=== PATIENT | female | born 1985 | race Caucasian/White ===

== ENCOUNTER 2016-10-25 10:03 | Inpatient (IN) | payer OTHER ==
[2016-10-25 11:11] LABS: Hematocrit 34 % (35-47); Hemoglobin 11.5 g/dl (12.0-16.0); Mean Corpuscular HGB Conc 33 g/dl (31-36); Mean Corpuscular Hemoglobin 32 pg (27-31); Mean Corpuscular Volume 95 fL (80-97); Mean Platelet Volume 11 um3 (7.4-10.4); Red Cell Distribution Width 13 % (10.5-15); White Blood Count 19.1 10^3/ul (3.5-10.8)
[2016-10-25 11:15] LABS: Add Diff/Slide Review? Slide Review Added; Comments Flag Yes
[2016-10-25] MEDS ORDERED: fentaNYL* 50 MCG/ML 2 ML VIAL (100 MCG VIAL) ONE (13:17)
[2016-10-25] MEDS ORDERED: OBEPIDURAL* 250 ML ONE (13:17)
[2016-10-25] MEDS ORDERED: Phenylephrine IV* 40 MCG/ML 10 ML SYRINGE IV PUSH PRN ×2 (14:11)
[2016-10-25] MEDS ORDERED: Sodium Citrate/Citric Acid* 15 ML UDC PO PRN (14:11)
[2016-10-25] MEDS ORDERED: Famotidine TAB* 20 MG PO PRN (14:11)
[2016-10-25] MEDS ORDERED: OBEPIDURAL* 250 ML EPIDURAL SCH (15:00)
[2016-10-25] MEDS ORDERED: Oxytocin in LR* 20 UNITS/1,000 ML BAG IVPB ONE (16:49)
[2016-10-25] MEDS ORDERED: Witch Hazel PAD* JAR TOPICAL PRN (17:10)
[2016-10-25] MEDS ORDERED: Dibucaine 1% 28.35 GM TUBE PR PRN (17:10)
[2016-10-25] MEDS ORDERED: Acetaminophen TAB* 325 MG PO PRN (17:10)
[2016-10-25] MEDS ORDERED: Oxytocin in LR* 20 UNITS/1,000 ML BAG IVPB SCH (18:00)
[2016-10-25] MEDS: Ibuprofen TAB* 600 MG PO PRN (19:52)
[2016-10-25] MEDS: Docusate CAP* 100 MG PO SCH (19:52)
[2016-10-26 07:53] LABS: Hematocrit 30 % (35-47); Hemoglobin 10.1 g/dl (12.0-16.0); Mean Corpuscular HGB Conc 34 g/dl (31-36); Mean Corpuscular Hemoglobin 32 pg (27-31); Mean Corpuscular Volume 96 fL (80-97); Mean Platelet Volume 11 um3 (7.4-10.4); Red Blood Count 3.15 10^6/ul (4.0-5.4); Red Cell Distribution Width 13 % (10.5-15)
[2016-10-26] MEDS: Docusate CAP* 100 MG PO SCH ×3 (08:59→21:32)
[2016-10-26] MEDS ORDERED: Ferrous Gluconate TAB* 324 MG TAB PO SCH (09:00)
[2016-10-26] MEDS: Ibuprofen TAB* 600 MG PO PRN ×2 (09:19→15:33)
[2016-10-27 08:06] VITALS: BP 104/67
[2016-10-27] MEDS: Docusate CAP* 100 MG PO SCH (08:18)
== END 2016-10-27 09:56 | disposition home or self-care (01) | DRG 560 ==
LOC: MCHOBOUT 10:03 → MCHOB 10:23
PROVIDERS: ADMIT Nurse Practitioner; ATTEND Nurse Practitioner
PROC: 0HQ9XZZ Repair Perineum Skin, External Approach (ICD-10-PCS; principal; 2016-10-25)
PROC: 10907ZC Drainage of Amniotic Fluid, Therapeutic from Products of Conception, Via Natural or Artificial Opening (ICD-10-PCS; 2016-10-25)
PROC: 10E0XZZ Delivery of Products of Conception, External Approach (ICD-10-PCS; 2016-10-25)
PROC: 4A1HXCZ Monitoring of Products of Conception, Cardiac Rate, External Approach (ICD-10-PCS; 2016-10-25)
DX: O48.0 Post-term pregnancy (principal); O77.0 Labor and delivery complicated by meconium in amniotic fluid; O70.0 First degree perineal laceration during delivery; Z37.0 Single live birth; Z3A.40 40 weeks gestation of pregnancy
CPT/HCPCS: 36415; 85025; 86850; 86900; 86901; A9270-GY; J3010

== ENCOUNTER 2018-07-15 13:59 | Emergency (ER) | payer OTHER ==
[2018-07-15 14:09] VITALS: BP 113/68
--- NOTE | 2018-07-15 14:33 | UC ---
Throat Pain/Nasal Aureliano HPI - HPI Summary HPI Summary: started [address], no fever or cough - History of Current Complaint Chief Complaint: UCRespiratory Stated Complaint: THROAT COMPLAINT Time Seen by Provider: 07/15/18 14:21 Hx Obtained From: Patient ?: No Onset/Duration: Gradual Onset Pain Intensity: 5 Associated Signs & Symptoms: Positive: Negative. Negative: Fever, Vomiting - Allergies/Home Medications Allergies/Adverse Reactions: Allergies Allergy/AdvReac Type Severity Reaction Status Date / Time No Known Allergies Allergy Verified 07/15/18 14:09 Home Medications: Home Medications Control Pill 07/15/18 [History] PMH/Surg Hx/FS Hx/Imm Hx Previously Healthy: Yes - Surgical History Surgical History: None - Family History Known Family History: Positive: None Negative: Hypertension, Diabetes - Social History Occupation: Employed Full-time Lives: With Family Alcohol Use: Occasionally Substance Use Type: None Smoking Status (MU): Never Smoked Tobacco Have You Smoked in the Last Year: No - Immunization History Most Recent Influenza Vaccination: 07/07/16 Most Recent Tetanus Shot: 07/28/16 Most Recent Pneumonia Vaccination: none Review of Systems All Other Systems Reviewed And Are Negative: Yes Constitutional: Positive: Negative. Negative: Fever, Chills ENT: Positive: Sore Throat Respiratory: Positive: Negative Cardiovascular: Positive: Negative Neurological: Positive: Negative Psychological: Positive: Negative Is Patient Immunocompromised?: No Physical Exam Triage Information Reviewed: Yes Appearance: Well-Appearing, No Pain Distress, Well-Nourished Vital Signs: Initial Vital Signs Temp 98.7 F 07/15/18 14:07 Pulse 88 07/15/18 14:07 Resp 18 07/15/18 14:07 BP 113/68 07/15/18 14:07 Pulse Ox 100 07/15/18 14:07 Vital Signs Reviewed: Yes ENT: Positive: Pharyngeal erythema, TMs normal Neck exam: Normal Neck: Positive: Supple, Nontender, No Lymphadenopathy Respiratory Exam: Normal Respiratory: Positive: Lungs clear Cardiovascular Exam: Normal Neurological Exam: Normal Psychological Exam: Normal Skin Exam: Normal Skin: Negative: Rashes Throat Pain/Nasal Course/Dx - Differential Dx/Diagnosis Differential Diagnosis/HQI/PQRI: Influenza, Mononucleosis, Pharyngitis, Tonsillitis Provider Diagnoses: sore throat Discharge - Sign-Out/Discharge Documenting (check all that apply): Patient Departure All imaging exams completed and their final reports reviewed: No Studies - Discharge Plan Condition: Good Disposition: HOME Patient Education Materials: Pharyngitis (ED) Forms: *Work Release Referrals: No Primary Care Phys,NOPCP [Primary Care Provider] - Additional Instructions: drink plenty of fluids use Tylenol or ibuprofen as directed for pain or fever return if no better 3 days - Billing Disposition and Condition Condition: GOOD Disposition: Home
== END 2018-07-15 14:48 | disposition home or self-care (01) ==
LOC: UCEAST 13:59
DX: J02.9 Acute pharyngitis, unspecified (principal)
CPT/HCPCS: 87651; 99211; G0463

== ENCOUNTER 2019-10-16 09:55 | Emergency (ER) | payer OTHER ==
--- OUTSIDE RECORDS SUMMARY | 2019-10-16 10:02 | XMS REPORT | Continuity of Care Document ---
:1985 External Reference #:[id number] Author Name Roslyn Scott CNM Address [address] [place] [address] Problems Active Problems Provider Date Oral contraception Jerome Luna CNM Onset: 04/24/2018 Social History Type Date Description Comments Sex Unknown Tobacco Use Start: Unknown Never Smoked Cigarettes Smoking Status Reviewed: 09/13/19 Never Smoked Cigarettes ETOH Use Alcohol Use Prior To rare Tobacco Use Start: Unknown Patient has never smoked Recreational Drug Use Does Not Use Drugs Exercise Type/Frequency Exercises regularly Seat Belt/Car Seat Always uses seat belt Allergies, Adverse Reactions, Alerts Description No Known Drug Allergies Medications Active Medications SIG Qnty Indications Ordering Provider Date Deblitane take one tablet 28tabs Roslyn Scott CNM 10/31/2018 0.35mg by mouth every Tablets day Medications Administered in Office Medication SIG Qnty Indications Ordering Provider Date Doc Med RSN No Tbco SCRN Roslyn Scott CNM 09/13/2019 Injection PT SCRN Tbco Id as Non User Jerome Luna CNM 04/24/2018 Injection Immunizations CPT Code Status Date Vaccine Lot # [id number] Given 07/28/2016 Tetnus, Diptheria Toxoids And Acellular [id number] Pertussis, PT > 7Yrs Old [id number] Given 07/07/2016 Influenza Virus Vaccine, Quadrivalent, Split, [id number] Preservative Free [id number] Given 09/09/2014 Tetnus, Diptheria Toxoids And Acellular [id number] Pertussis, PT > 7Yrs Old Vital Signs Date Vital Result Comment 09/13/2019 1:14pm BP Systolic 116 mmHg BP Diastolic 78 mmHg Height 65 inches 5'5" Weight 164.00 lb BMI (Body Mass Index) 27.3 kg/m2 Last Menstrual Period [id number] 2 Parity 2 04/24/2018 10:18am BP Systolic 114 mmHg BP Diastolic 72 mmHg Height 65 inches 5'5" Weight 151.00 lb BMI (Body Mass Index) 25.1 kg/m2 Last Menstrual Period [id number] 2 Parity 2 Results Description No Information Available Procedures Description No Information Available Medical Devices Description No Information Available Encounters Type Date Location Provider Dx Diagnosis Office Visit 09/13/2019 [facility] Roslyn Scott CNM Z01.419 Encntr for neurobiologist exam 1:30p (general) (routine) w/o abn findings Assessments Date Code Description Provider 09/13/2019 Z01.419 Encounter for gynecological examination Roslyn Scott CNM (general) (routine) without abnormal findings Plan of Treatment No Information Available Functional Status Description No Information Available Mental Status Description No Information Available Referrals Description No Information Available
--- NOTE | 2019-10-16 10:32 | UC ---
Throat Pain/Nasal Aureliano HPI - History of Current Complaint Stated Complaint: L EYE COMPLAINT Time Seen by Provider: 10/16/19 10:32 - Allergies/Home Medications Allergies/Adverse Reactions: Allergies Allergy/AdvReac Type Severity Reaction Status Date / Time No Known Allergies Allergy Verified 07/15/18 14:09 PMH/Surg Hx/FS Hx/Imm Hx - Surgical History Surgical History: None - Family History Known Family History: Positive: None Negative: Hypertension, Diabetes - Social History Alcohol Use: Occasionally Substance Use Type: None Smoking Status (MU): Never Smoked Tobacco Have You Smoked in the Last Year: No - Immunization History Most Recent Influenza Vaccination: 07/07/16 Most Recent Tetanus Shot: 07/28/16 Most Recent Pneumonia Vaccination: none Discharge ED - Discharge Plan Referrals: No Primary Care Phys,NOPCP [Primary Care Provider] -
--- NOTE | 2019-10-16 10:44 | UC ---
Eye Complaint HPI - HPI Summary HPI Summary: 33 yo female presents with LEFT eye complaint. She tells me that yesterday her left eye was a little red and itchy. This morning has more redness and had yellow crusting and drainage. She has two small children at home and thinks she may have gotten "pink eye" from them. She has been feeling well otherwise and denies fever, chills, sinus symptoms, sore throat, recent illness, vision changes. She does not wear glasses or contacts. No FB or trauma to eye. - History of Current Complaint Stated Complaint: L EYE COMPLAINT Time Seen by Provider: 10/16/19 10:32 Onset/Duration: Sudden Onset Timing: Constant Severity Initially: Mild Severity Currently: Mild Pain Intensity: 3 Pain Scale Used: 0-10 Numeric - Allergies/Home Medications Allergies/Adverse Reactions: Allergies Allergy/AdvReac Type Severity Reaction Status Date / Time No Known Allergies Allergy Verified 10/16/19 10:45 Home Medications: Home Medications Norethindrone [Deblitane] 1 tab PO DAILY 10/16/19 [History Confirmed 10/16/19] PMH/Surg Hx/FS Hx/Imm Hx - Additional Past Medical History Additional PMH: None - Surgical History Surgical History: None - Family History Known Family History: Positive: None Negative: Hypertension, Diabetes - Social History Lives: With Family Alcohol Use: Occasionally Substance Use Type: None Smoking Status (MU): Never Smoked Tobacco Have You Smoked in the Last Year: No - Immunization History Most Recent Influenza Vaccination: 07/07/16 Most Recent Tetanus Shot: 07/28/16 Most Recent Pneumonia Vaccination: none Review of Systems All Other Systems Reviewed And Are Negative: No Constitutional: Positive: Negative Skin: Positive: Negative Eyes: Positive: Drainage, Eye Redness ENT: Positive: Negative Respiratory: Positive: Negative Cardiovascular: Positive: Negative Neurological/Mental Status: Positive: Negative Psychological: Positive: Negative Physical Exam - Summary Physical Exam Summary: GENERAL: WDWN. No pain distress. SKIN: No rashes, sores, lesions, or open wounds. HEENT: Head: AT/NC Eyes: EOM intact. PERRLA. LEFT EYE: Mild scleral injection. Conjunctiva with mild erythema and inflammation. Mild clear/yellow discharge. RIGHT EYE: Conjunctiva clear without inflammation or discharge. No FBs appreciated Nose: NTTP maxillary and frontal sinus. NECK: Supple. Nontender. No lymphadenopathy. CHEST: No accessory muscle use. Breathing comfortably and in no distress. CV: Pulses intact. Cap refill <2seconds NEURO: Alert. PSYCH: Age appropriate behavior. Triage Information Reviewed: Yes Vital Signs: Vital Signs: Temp Pulse Resp BP Pulse Ox 97.6 F 84 18 143/76 100 10/16/19 10:42 10/16/19 10:42 10/16/19 10:42 10/16/19 10:42 10/16/19 10:42 Norethindrone [Deblitane] 1 tab PO DAILY 10/16/19 [History Confirmed 10/16/19] Ofloxacin 0.3% (Eye Drop) [Ocuflox OPTH 0.3% (Eye Drop)] 1 drop LEFT EYE QID #1 btl 10/16/19 [Rx] Vital Signs Reviewed: Yes Eye Complaint Course/Dx - Course Course Of Treatment: LEFT eye conjunctivitis - Differential Dx/Diagnosis Provider Diagnosis: Conjunctivitis Discharge ED - Sign-Out/Discharge Documenting (check all that apply): Patient Departure All imaging exams completed and their final reports reviewed: No Studies - Discharge Plan Condition: Stable Disposition: HOME Prescriptions: Ofloxacin 0.3% (Eye Drop) [Ocuflox OPTH 0.3% (Eye Drop)] 1 drop LEFT EYE QID #1 btl Patient Education Materials: Conjunctivitis (ED) Referrals: No Primary Care Phys,NOPCP [Primary Care Provider] - Additional Instructions: If you develop a fever, shortness of breath, chest pain, new or worsening symptoms - please call your PCP or go to the ED immediately. - Billing Disposition and Condition Condition: STABLE Disposition: Home - Attestation Statements Provider Attestation: I was available for consult. This patient was seen by the ANGIE. The patient was not presented to, seen by, or examined by me. -Makenna
[2019-10-16 10:45] VITALS: BP 143/76
== END 2019-10-16 11:05 | disposition home or self-care (01) ==
LOC: UCEAST 09:55
DX: H10.9 Unspecified conjunctivitis (principal)
CPT/HCPCS: 99212; G0463

== ENCOUNTER 2020-10-26 07:57 | Inpatient (IN) ==
[2020-10-26] MEDS ORDERED: Lactated Ringers 1000 ml BAG 1,000 ML IV ONE ×2 (08:37→14:40)
[2020-10-26 09:19] LABS: ABS Basophils 0.1 10^3/ul (0-0.2); ABS Eosinophils 0.1 10^3/ul (0-0.6); ABS Lymphocytes 1.5 10^3/ul (1.0-4.8); ABS Monocytes 0.5 10^3/ul (0-0.8); Eosinophil % 0.6 %; Hematocrit 35 % (35-47); Hemoglobin 11.7 g/dL (12.0-16.0); Lymphocyte % 13.1 %; Mean Corpuscular HGB Conc 34 g/dL (31-36); Mean Corpuscular Hemoglobin 32 pg (27-31); Mean Corpuscular Volume 94 fL (80-97); Mean Platelet Volume 11.2 fL (7.4-10.4); Platelet Count 193 10^3/uL (150-450); Red Blood Count 3.71 10^6 /uL (3.70-4.87); Red Cell Distribution Width 13 % (10-15); White Blood Count 11.1 10^3/uL (3.5-10.8)
[2020-10-26 09:35] LABS: Urine Benzodiazepine Screen None Detected (None Detect); Urine Cannabinoids Screen None Detected (None Detect); Urine Opiates Screen None Detected (None Detect)
[2020-10-26] MEDS: Lactated Ringers 1000 ml BAG 1,000 ML IV SCH ×2 (10:14→14:02)
[2020-10-26] MEDS: Oxytocin in LR 20 UNITS/1,000 ML BAG IVPB SCH ×2 (10:14→13:45)
[2020-10-26] MEDS ORDERED: OBEPIDURAL 250 ML EPIDURAL ONE (13:26)
[2020-10-26] MEDS ORDERED: Lactated Ringers 1000 ml BAG 500 ML IV PRN (14:40)
[2020-10-26] MEDS ORDERED: Sodium Citrate/Citric Acid LIQ 15 ML UDC PO PRN (14:40)
[2020-10-26] MEDS ORDERED: EPHEDrine (Pressors) 50 MG/ML VIAL IV PUSH PRN (14:40)
[2020-10-26] MEDS ORDERED: Phenylephrine 40 mcg/mL 10mL (400mcg) SYRINGE IV PUSH PRN (14:40)
[2020-10-26] MEDS ORDERED: OBEPIDURAL 250 ML EPIDURAL SCH (15:00)
[2020-10-26] MEDS ORDERED: Lactated Ringers 1000 ml BAG 1,000 ML IV SCH (15:00)
[2020-10-26] MEDS ORDERED: Ondansetron 4 mg VIAL 2 MG/ML 2 ml VIAL IV ONE (23:13)
[2020-10-27] MEDS ORDERED: Oxytocin in LR 20 UNITS/1,000 ML BAG IVPB SCH
[2020-10-27] MEDS ORDERED: Dibucaine 1% OINT 28.35 GM TUBE PR PRN (01:33)
[2020-10-27] MEDS ORDERED: Witch Hazel PAD JAR TOPICAL PRN (01:33)
[2020-10-27] MEDS ORDERED: Measles, Mumps,Rubella VACC 0.5 ML/VIAL SUBCUT ONE ×2 (01:33→15:00)
[2020-10-27] MEDS ORDERED: Lactated Ringers 1000 ml BAG 1,000 ML IV SCH (02:00)
[2020-10-27 06:48] LABS: ABS Basophils 0.2 10^3/ul (0-0.2); ABS Lymphocytes 1.5 10^3/ul (1.0-4.8); ABS Monocytes 1.2 10^3/ul (0-0.8); ABS Neutrophils 19.4 10^3/ul (1.5-7.7); Eosinophil % 0.1 %; Hematocrit 31 % (35-47); Hemoglobin 10.5 g/dL (12.0-16.0); Lymphocyte % 6.5 %; Mean Corpuscular HGB Conc 34 g/dL (31-36); Mean Corpuscular Hemoglobin 32 pg (27-31); Mean Corpuscular Volume 94 fL (80-97); Mean Platelet Volume 10.8 fL (7.4-10.4); Platelet Count 178 10^3/uL (150-450); Red Blood Count 3.29 10^6 /uL (3.70-4.87); Red Cell Distribution Width 13 % (10-15); White Blood Count 22.4 10^3/uL (3.5-10.8)
[2020-10-28 07:21] VITALS: BP 115/74
== END 2020-10-28 11:50 | disposition home or self-care (01) | DRG 560 ==
LOC: MCHOBOUT 07:57 → MCHOB 08:18
PROVIDERS: ADMIT Midwife; ATTEND Midwife